=== PATIENT | female | born 1985 | race Caucasian/White ===

== ENCOUNTER → 2018-02-22 | Outpatient (REF) | payer OTHER ==
[2018-02-25 14:14] LABS: HPV HYBRID CAPTURE II Negative (Negative)
== END ==
LOC: M LAB REF 09:28
DX: Z12.4 Encounter for screening for malignant neoplasm of cervix (principal)
CPT/HCPCS: G0123

== ENCOUNTER → 2018-03-31 | Outpatient (CLI) | payer OTHER ==
[2018-03-31 18:37] LABS: BASO # 0.1 10^3/uL (0.0-0.2); BASO % 0.9 % (0.0-1.0); EOS # 0.2 10^3/uL (0.0-0.50); EOS % 2.7 % (0.0-3.0); HEMATOCRIT 39.4 % (36.0-47.0); HEMOGLOBIN 13.9 g/dl (12.0-15.5); IMMATURE GRANULOCYTE % 0.1 % (0-3.0); LYMPH # 2.7 10^3/uL (1.5-4.5); LYMPH % 30.3 % (24.0-44.0); MEAN CORPUSCULAR HEMOGLOBIN 32.3 pg (27.0-33.0); MEAN CORPUSCULAR HGB CONC 35.3 g/dl (32.0-36.5); MEAN CORPUSCULAR VOLUME 91.6 fl (80.0-96.0); MONO # 0.5 10^3/uL (0.0-0.8); MONO % 5.4 % (0.0-5.0); NEUTROPHILS # 5.4 10^3/uL (1.8-7.7); NEUTROPHILS % 60.6 % (36.0-66.0); PLATELET COUNT, AUTOMATED 256 10^3/uL (150-450); RED CELL DISTRIBUTION WIDTH 11.4 % (11.5-14.5); WHITE BLOOD COUNT 8.9 10^3/uL (4.0-10.0)
[2018-04-01 00:21] LABS: CHLAMYDIA DNA AMPLIFICATION NEGATIVE (NEGATIVE); GC DNA AMPLIFICATION NEGATIVE (NEGATIVE)
[2018-04-02 13:52] LABS: RUBELLA IgG QUALITATIVE IMMUNE (IMMUNE)
[2018-04-02 13:57] LABS: HBsAg Prenatal NEGATIVE (NEGATIVE)
[2018-04-02 14:22] LABS: HEPATITIS C VIRUS ABY INDEX 0.1 INDEX (<0.8)
[2018-04-02 14:23] LABS: HIV 1&2 SCREEN CENTAUR NEGATIVE (NEGATIVE)
== END ==
LOC: M SMT 14:05
DX: Z34.81 Encounter for supervision of other normal pregnancy, first trimester (principal); Z3A.08 8 weeks gestation of pregnancy
CPT/HCPCS: 86762

== ENCOUNTER → 2018-05-13 | Outpatient (CLI) | payer OTHER | LOC: M SMT 14:41 | DX: Z36.89 Encounter for other specified antenatal screening (principal); Z3A.00 Weeks of gestation of pregnancy not specified | CPT/HCPCS: 36415 ==

== ENCOUNTER → 2018-07-12 | Outpatient (CLI) | payer OTHER ==
--- NOTE | 2018-07-13 04:23 | REP ---
Clinical: Anatomical evaluation. Comparison: None . Findings: Examination demonstrates a single live intrauterine in breech presentation. motion is identified by technologist. Placenta is noted anterior and grade grade 1 without evidence for placenta previa or abruption. Amniotic fluid volume is normal. Cervix measures 3.7 cm in length and appears closed. Nuchal cord cannot be excluded. Gestational age by current measurements 21 weeks 1 day with YARIEL 11/21/2018 . FHR equals 157 beats per minute. BPD 4.9 cm 20 weeks 6 days HC 18.8 cm 21 weeks 1 day AC 16.5 cm 21 weeks 4 days FL 3.8 cm 22 weeks 1 day HL 3.6 cm 22 weeks 4 days HC/AC ratio 1.14 Estimated weight 444 grams ( 64th percentile). Anatomical assessment demonstrates normal structures including cranium, choroid plexus, cavum, cerebellum/posterior fossa, facial features, lungs, four-chamber heart/ventricular outflow tracts, diaphragm, stomach, cord insertion/three-vessel cord, kidneys/bladder, and extremities. Incomplete evaluation of the spine due to positioning. Impression: Single live intrauterine in breech presentation. Limited evaluation of the spine may warrant reevaluation. Nuchal cord cannot be excluded. Electronically Signed by Andres Lara MD 07/13/2018 04:15 A
== END ==
LOC: M SMT 12:59
PROVIDERS: ATTEND Obstetrics & Gynecology
DX: Z36.89 Encounter for other specified antenatal screening (principal); Z3A.21 21 weeks gestation of pregnancy

== ENCOUNTER → 2018-08-16 | Outpatient (CLI) | payer OTHER ==
--- NOTE | 2018-08-16 20:30 | REP ---
Clinical: Anatomical evaluation. Comparison: 07/12/2018 . Findings: Examination demonstrates a single live intrauterine in cephalic presentation. motion is identified by technologist. Placenta is noted anterior and grade 1 without evidence for placenta previa or abruption. Amniotic fluid volume is normal. Cervix measures 4.8 cm in length and appears closed. No evidence for nuchal cord. Gestational age by LMP 26 weeks 1 day with YARIEL 11/21/2018 . Gestational age by current measurements 26 weeks 4 days with YARIEL 11/18/2018 . FHR equals 153 beats per minute. Estimated weight 1029 grams ( 68th percentile). Anatomical assessment demonstrates normal structures including cranium, choroid plexus, cavum, cerebellum/posterior fossa, facial features, lungs, four-chamber heart/ventricular outflow tracts, diaphragm, stomach, cord insertion/three-vessel cord, kidneys/bladder, spine, and extremities. Impression: Single live intrauterine in cephalic presentation demonstrating appropriate interval growth. In conjunction with prior examination anatomical assessment is complete and normal. No gross abnormalities are identified. Electronically Signed by Andres Lara MD 08/16/2018 08:21 P
== END ==
LOC: M SMT 14:22
PROVIDERS: ATTEND Advanced Practice Midwife
DX: Z36.9 Encounter for antenatal screening, unspecified (principal); Z3A.26 26 weeks gestation of pregnancy

== ENCOUNTER → 2018-08-30 | Outpatient (CLI) | payer OTHER ==
[2018-08-30 13:52] LABS: BASO % 0.4 % (0.0-1.0); EOS # 0.4 10^3/uL (0.0-0.50); EOS % 3.3 % (0.0-3.0); HEMATOCRIT 33.5 % (36.0-47.0); HEMOGLOBIN 11.8 g/dl (12.0-15.5); LYMPH # 1.9 10^3/uL (1.5-4.5); LYMPH % 18.3 % (24.0-44.0); MEAN CORPUSCULAR HEMOGLOBIN 33.2 pg (27.0-33.0); MEAN CORPUSCULAR HGB CONC 35.2 g/dl (32.0-36.5); MEAN CORPUSCULAR VOLUME 94.4 fl (80.0-96.0); MONO # 0.5 10^3/uL (0.0-0.8); MONO % 4.9 % (0.0-5.0); NEUTROPHILS # 7.7 10^3/uL (1.8-7.7); NEUTROPHILS % 72.7 % (36.0-66.0); PLATELET COUNT, AUTOMATED 296 10^3/uL (150-450); RED BLOOD COUNT 3.55 10^6/uL (4.00-5.40); WHITE BLOOD COUNT 10.6 10^3/uL (4.0-10.0)
== END ==
LOC: M SMT 09:57
PROVIDERS: ATTEND Advanced Practice Midwife
DX: Z34.82 Encounter for supervision of other normal pregnancy, second trimester (principal)

== ENCOUNTER → 2018-10-21 | Outpatient (REF) | payer OTHER | LOC: M LAB REF 17:20 | PROVIDERS: ATTEND Advanced Practice Midwife | DX: Z34.83 Encounter for supervision of other normal pregnancy, third trimester (principal); Z3A.00 Weeks of gestation of pregnancy not specified ==

== ENCOUNTER → 2018-10-28 | Outpatient (CLI) | payer OTHER | LOC: M SMT 10:56 | PROVIDERS: ATTEND Advanced Practice Midwife | DX: Z34.83 Encounter for supervision of other normal pregnancy, third trimester (principal); Z36.89 Encounter for other specified antenatal screening ==

== ENCOUNTER → 2018-11-04 | Outpatient (REF) | payer OTHER | LOC: M SFHCLERA 11:36 | PROVIDERS: ATTEND Nurse Practitioner Family | DX: R53.81 Other malaise (principal) ==

== ENCOUNTER 2018-11-15 14:18 | Inpatient (IN) | payer OTHER ==
[~2018-11-15] VITALS: Ht 165.1 cm; Wt 70.2 kg
[2018-11-15] VITALS (8 sets, daily range): BP systolic 109–146; BP diastolic 57–88
[2018-11-15] MEDS ORDERED: PRENTAB9 PO (14:45)
[2018-11-15] MEDS ORDERED: LACTATED RINGER'S 1000 ML IV STA (14:55)
[2018-11-15] MEDS ORDERED: LR 1,000 ML IV SCH (14:55)
[2018-11-15] MEDS ORDERED: OXYTOCIN 30 UNITS IN 0.9% NaCl 500ML IV BAG (J2590) As Ordered ONE (14:58)
[2018-11-15 15:19] LABS: HEMATOCRIT 39.9 % (36.0-47.0); HEMOGLOBIN 14.2 g/dl (12.0-15.5); MEAN CORPUSCULAR HEMOGLOBIN 33.1 pg (27.0-33.0); MEAN CORPUSCULAR HGB CONC 35.6 g/dl (32.0-36.5); PLATELET COUNT, AUTOMATED 309 10^3/uL (150-450); RED BLOOD COUNT 4.29 10^6/uL (4.00-5.40); WHITE BLOOD COUNT 15.6 10^3/uL (4.0-10.0)
[2018-11-15] MEDS ORDERED: OXYTOCIN DRIP 30 UNITS in APPROPRIATE DILUENT 1 EA IV SCH (16:10)
[2018-11-15] MEDS ORDERED: MEASLES,MUMPS,RUBELLA VACCINE INJ (MMR-II) (90707) SC SCH (16:15)
[2018-11-15] MEDS ORDERED: DOCUSATE SODIUM 100 MG CAP PO PRN (16:15)
[2018-11-15] MEDS ORDERED: RHOGAM 300 MCG (1500 IU) INJ (J2790) IM SCH (16:15)
[2018-11-15] MEDS ORDERED: DIBUCAINE 1% OINTMENT 30GM TOP PRN (16:15)
[2018-11-15] MEDS ORDERED: IBUPROFEN 800 MG TAB PO PRN (16:15)
[2018-11-15] MEDS ORDERED: METHYLERGONOVINE MALEATE 0.2 MG/ML VIAL (J2210) IM ONE (16:15)
[2018-11-15] MEDS ORDERED: LIDOCAINE 1% MDV 20ML VIAL INFIL ONE (16:15)
[2018-11-15] MEDS ORDERED: METHYLERGONOVINE MALEATE 0.2 MG TAB PO PRN (16:15)
[2018-11-15] MEDS ORDERED: ACETAMINOPHEN 500 MG TAB PO PRN (16:15)
--- NOTE | 2018-11-15 16:53 | DN ---
DATE OF DELIVERY: 11/15/2018 at 1524 hours STATUS: Delivered via vaginal delivery. ANESTHESIA: None. ESTIMATED BLOOD LOSS (EBL): 450 FINDINGS: Female, 7 pounds 0 ounces, 3180 grams, scores 9/9. Patient is a 33-year-old female who is now a 2, para 1-0-1-1 at 39.2 weeks who presented to labor and delivery in active labor. She progressed to fully dilated at 1512 hours and spontaneously ruptured at 1516 to a moderate amount of clear fluid. The patient pushed to a living female in the occiput anterior (OA) position with restitution to left occiput transverse (LOT) at 1527 hours. The anterior shoulder delivered with ease and the corpus immediately followed. The baby was placed on the maternal abdomen active and crying. The cord was clamped times two after pulsations ceased and cut by the father of the baby. A three-vessel cord was noted. The placenta delivered spontaneously and intact at 1531 hours. Uterine hemostasis was achieved via rapid infusion of IV Pitocin, fundal massage, and Methergine given intramuscular (IM) into the right thigh. The perineum and vaginal were inspected and found to have a second-degree perineal laceration which was repaired with a 3.0 Vicryl. The mom and dad plan on naming their daughter Harika. She plans to breastfeed baby. Both mom and baby are in stable condition. Counts are correct.
--- NOTE | 2018-11-15 17:57 | HPE ---
DATE OF ADMISSION: 11/15/2018 HISTORY OF PRESENT ILLNESS: The patient is a 33-year-old female who is a G2, P0-0-1-0 at 39 weeks and 2 days gestation with an YARIEL of 11/20/2018 based off her first trimester ultrasound. She initiated her care in the first trimester at [facility] . Her has been uncomplicated. The patient presented to labor and delivery with complaints of contractions. She reports active movement. She denies vaginal bleeding. She denies leaking of fluid. ALLERGIES: No known drug allergies. CURRENT MEDICATIONS: - vitamins PAST MEDICAL HISTORY: Varicella as a child and childhood asthma. SURGICAL HISTORY: None. FAMILY HISTORY: Depression. SOCIAL HISTORY: The patient is . She denies any history of abuse. She denies any history of illicit drug use or alcohol use. She denies any history of sexually transmitted infections. OBSTETRICAL HISTORY: September 2017, at 6 weeks, the patient had a missed AB and used Cytotec. LABORATORIES: Blood type is B positive. Hemoglobin and hematocrit in the first trimester was 13.9 and 39.4 with platelets 256. Her Pap, which was done on 02/22/2018, was normal. She is immune to Rubella. Her venereal disease research laboratory test (VDRL) is nonreactive. Urine is no growth. Hepatitis B surface antigen is negative. HIV is negative. Hepatitis C is negative. Gonorrhea and chlamydia both negative. NIP testing done showing low risk in a female fetus. Diabetic screening done was 118 with a hemoglobin and hematocrit of 11.8 and 33.5 with platelets of 296. Her Group B streptococcus (GBS) was negative. Her second HIV was also negative. VITAL SIGNS: Temperature is 98.7, pulse 71, respiratory rate 20, blood pressure 124/67. heart rate is 120 with moderate variability, positive accelerations, no decelerations. Contractions are every 2 to 4 minutes. PHYSICAL EXAMINATION: GENERAL: Alert and oriented times three. ABDOMEN: Gravid. Nontender to touch. Contractions palpate strong. HEART: Regular rate and rhythm. LUNGS: Regular rate. No use of accessory muscles. EXTREMITIES: No edema. No clonus. VAGINAL EXAM: 8 cm dilated, effacement at 100%, 0 station. position is cephalic. There is scant bloody show and a bulging bag of membranes. ASSESSMENT: 1. Intrauterine at 39.2 weeks gestation. 2. Group B streptococcus (GBS) negative. 3. Category 1 heart rate tracing. 4. Active labor. PLAN: Admit to labor and delivery. Out of bed as desired. Diet is clear. Laboratories and IV per protocol. Anesthesia consult per patient's request. Lactated Ringer bolus of 800 mL to be given prior to epidural and then 125 mL after. Anticipate cervical change and vaginal delivery.
[2018-11-16 06:00] VITALS: BP 105/59
[2018-11-16] MEDS: PRENATAL VITAMINS CHEWABLE TABLET PO SCH (09:15)
[2018-11-16 09:16] VITALS: BP 104/64
[2018-11-16 18:02] VITALS: BP 112/62
[2018-11-17 05:52] VITALS: BP 115/64
[2018-11-17 06:16] VITALS: BP 95/45
[2018-11-17] MEDS: PRENATAL VITAMINS CHEWABLE TABLET PO SCH (09:10)
[2018-11-17] MEDS ORDERED: MAPA500T2 PO (10:28)
[2018-11-17] MEDS ORDERED: IBUP-1114 PO (10:28)
== END 2018-11-17 11:20 | disposition home or self-care (01) | DRG 807 ==
LOC: M LDO 14:18 → M LDI 14:53 → M OBS 17:40
PROVIDERS: ADMIT Advanced Practice Midwife; ATTEND Advanced Practice Midwife
PROC: 10E0XZZ Delivery of Products of Conception, External Approach (ICD-10-PCS; principal; 2018-11-15)
PROC: 0KQM0ZZ Repair Perineum Muscle, Open Approach (ICD-10-PCS; 2018-11-15)
DX: O70.1 Second degree perineal laceration during delivery (principal); Z37.0 Single live birth; Z3A.39 39 weeks gestation of pregnancy

== ENCOUNTER → 2019-03-16 | Outpatient (REF) | payer OTHER ==
[~2019-03-16] MED LIST: IBUP-1114 PO; MAPA500T2 PO; PRENTAB9 PO
[2019-03-18 14:50] LABS: HPV HYBRID CAPTURE II Negative (Negative)
== END ==
LOC: M LAB REF 13:36
PROVIDERS: ATTEND Obstetrics & Gynecology
DX: Z12.4 Encounter for screening for malignant neoplasm of cervix (principal)
CPT/HCPCS: 87624; G0123

== ENCOUNTER → 2019-09-01 | Outpatient (REF) | payer OTHER | LOC: M WHC 11:41 | PROVIDERS: ATTEND Obstetrics & Gynecology | DX: Z12.4 Encounter for screening for malignant neoplasm of cervix (principal) | CPT/HCPCS: 87624; G0123 ==